=== PATIENT | male | born 1985 | race African-American/Black ===

== ENCOUNTER → 2016-12-08 | Outpatient (CLI) | payer OTHER ==
[~2016-12-08] VITALS: Ht 182.9 cm; Wt 109.4 kg
[~2016-12-08] MED LIST: AMITRIPTYLINE H10 M3 PO; EXCEDRIN CAPLE1 EACH PO; FLEXERIL PO; HYDROCODON-ACE1 EAC5 PO; HYDROCODONE-AP1 EAC6 PO; IBUPROFEN 600600 M1 PO; MEDROLDOSEPACK PO; MOBIC15 MG PO; NAPROSYN500 MG PO; NOHOMEMEDICATIONS; PERCOCET 5-3251 EACH PO; PREDNISONE 20 M20 MG PO; TORADOL 10 MG T10 MG PO
--- NOTE | ~2016-12-08 | HPC ---
[facility] [place] [address] PAIN MANAGEMENT CONSULTATION Name: ELOISA MICHAUD Room #: REG JAVIER VallejoVasquez#: [id number] Admission: 12/08/16 Attend Phys: Dinesh Infante MD Discharge: Date of : 81 Report #: [id number] THIS REPORT FOR: //name// CC: JUSTIN physician/PCP Dinesh Infante DATE OF SERVICE: 12/08/2016 The patient does not have a primary care physician. FOLLOWUP COMPLAINT: Here for an epidural injection. FOLLOWUP HISTORY: The patient is a 31-year-old gentleman who has been seen in the pain clinic because of lumbar radiculopathy. He was experiencing pain and discomfort in his low back with pain radiating down into his legs with numbness and tingling in the calf on the left side. He was given a Medrol Dosepak. He does note that his pain did improve somewhat with use of these medications. He had no complications from their use. He has returned today. His insurance company has authorized the performance of an epidural steroid injection to help decrease his numbness, tingling and weakness involving the right leg. PHYSICAL EXAMINATION: Blood pressure is 131/97, pulse 101, respiratory rate 16, room air saturation is 97. The patient has pain and discomfort involving the right leg with pain radiating down into his calf with numbness, weakness and tingling in his leg. IMPRESSION: Lumbar radiculopathy in the L4-L5 distribution. RECOMMENDATIONS: We again described the procedure to the patient. Risks and benefits were again reviewed. He elects to proceed. PROCEDURE NOTE: The patient was placed in the prone position. Fluoroscopy was used to identify the L4-L5 interspace. This area had been sterilely prepped with Betadine. 0.25% bupivacaine was infiltrated. A 17-gauge Tuohy with loss of resistance technique was used to gain access to the epidural space. There was no CSF, heme or paresthesia. The patient tolerated the procedure well. His pain decreased to 0 at the time of discharge. He will follow up in the future as needed. We would like to thank you for letting us participate in his care. We hope he continues to improve. By: [id number] Dinesh Infante MD /felipa
[2016-12-08 08:54] VITALS: BP 137/97
== END | disposition home or self-care (01) ==
LOC: PAIN 06:46
DX: M54.16 Radiculopathy, lumbar region (principal); F17.210 Nicotine dependence, cigarettes, uncomplicated